=== PATIENT | male | born 1950 | race Caucasian/White ===

== ENCOUNTER 2020-02-15 15:56 | Emergency (ER) | payer MEDICARE, BC ==
[2020-02-15] MEDS ORDERED: Sodium Chloride 0.9% 10 ML Syringe FLUSH PRN ×2 (16:36→18:18)
[2020-02-15] MEDS ORDERED: Sodium Chloride 0.9% 1,000 ML IV SCH (16:45)
--- NOTE | 2020-02-15 17:26 | EDM.PDOC ---
ED HPI GENERAL MEDICAL PROBLEM - General Chief Complaint: Respiratory Problem Stated Complaint: SOB/WEAK/COUGH Time Seen by Provider: 02/15/20 16:27 Source of Information: Reports: Patient, Family, Provider History Limitations: Reports: No Limitations - History of Present Illness INITIAL COMMENTS - FREE TEXT/NARRATIVE: The patient presents with a cough, fever, chills, shortness of breath and generalized weakness. The patient's provider TANVIR Ferreira called and said she is sending the patient in. She did a telehealth visit with him today and he is not doing well. On the 25 of January the patient's tested positive for COVID 19. He started having symptoms on the . He had fever, chills, cough, congestion and shortness of breath. He has been dealing with bilateral foot ulcers on the borges of his feet. The right one healed. The left one he had surgery on and he developed osteomyolitis. He is on doxycycline for over a month. He has been sitting around not doing much. He has no chest pain, abdominal pain, nausea or vomiting. He is not eating much. He has a history of diabetes, HTN, and peripheral neuropathy. Onset: Gradual Duration: Week(s): Improves with: Reports: None Worsens with: Reports: None Associated Symptoms: Reports: Cough, Fever/Chills, Shortness of Breath. Denies: Chest Pain, Headaches, Nausea/Vomiting - Related Data Allergies Allergy/AdvReac Type Severity Reaction Status Date / Time No Known Allergies Allergy Verified 02/15/20 16:16 Home Meds: Home Meds Ascorbic Acid [Vitamin C] 500 mg PO DAILY 05/17/14 [History] Aspirin [Suresh Chewable Aspirin] 81 mg PO DAILY 05/17/14 [History] Cholecalciferol (Vitamin D3) [Vitamin D3] 2,000 unit PO DAILY 05/17/14 [History] Fish Oil/Tyler-3 Fatty Acids [Fish Oil 1,000 MG] 1 gm PO DAILY 05/17/14 [History] metFORMIN [Glucophage] 500 mg PO BID 05/17/14 [History] dexAMETHasone [Dexamethasone] 8 mg PO BID #12 tab 02/15/20 [Rx] Past Medical History HEENT History: Reports: Impaired Vision Social & Family History - Tobacco Use Smoking Status *Q: Never Smoker ED ROS GENERAL - Review of Systems Review Of Systems: See Below Constitutional: Reports: Fever, Chills, Malaise, Weakness, Fatigue HEENT: Reports: No Symptoms Respiratory: Reports: Shortness of Breath, Cough Cardiovascular: Reports: No Symptoms Endocrine: Reports: No Symptoms GI/Abdominal: Reports: No Symptoms : Reports: No Symptoms Musculoskeletal: Reports: No Symptoms ED EXAM, GENERAL - Physical Exam Exam: See Below Exam Limited By: No Limitations General Appearance: Alert, No Apparent Distress Ears: Normal External Exam Nose: Normal Inspection Head: Atraumatic, Normocephalic Neck: Normal Inspection Respiratory/Chest: No Respiratory Distress, Decreased Breath Sounds, Rhonchi Cardiovascular: Regular Rate, Rhythm, No Edema, No Murmur GI/Abdominal: Soft, Non-Tender, No Organomegaly, No Mass Back Exam: Normal Inspection Extremities: Normal Inspection Course - Vital Signs Last Recorded V/S: Last Vital Signs Temp 99.0 F 02/15/20 16:13 Pulse 102 H 02/15/20 16:13 Resp 18 02/15/20 16:13 BP 131/88 02/15/20 16:13 Pulse Ox 90 L 02/15/20 16:13 - Orders/Labs/Meds Orders: Active Orders 24 hr Category Date Time Status Cardiac Monitoring [RC] . DIRECTED Care 02/15/20 16:36 Active Oxygen Therapy [RC] PRN Care 02/15/20 16:36 Active Peripheral IV Care [RC] . DIRECTED Care 02/15/20 16:36 Active Ang Chest [CT] Stat Exams 02/15/20 17:53 Taken Chest 1V Frontal [CR] Stat Exams 02/15/20 16:38 Taken Sodium Chloride 0.9% [Normal Saline] 1,000 ml Med 02/15/20 16:45 Active IV .BOLUS Sodium Chloride 0.9% [Normal Saline] 100 ml Med 02/15/20 18:30 Active IV ASDIRECTED Sodium Chloride 0.9% [Saline Flush] Med 02/15/20 16:36 Active 10 ml FLUSH ASDIRECTED PRN Sodium Chloride 0.9% [Saline Flush] Med 02/15/20 18:18 Active 10 ml FLUSH ONETIME PRN Peripheral IV Insertion Adult [OM.PC] Stat Oth 02/15/20 16:36 Ordered Medication Orders Sodium Chloride (Normal Saline) 1,000 mls @ 1,000 mls/hr IV .BOLUS SHADIA Last Admin: 02/15/20 18:11 Dose: 1,000 mls/hr Documented by: QUINTIN Sodium Chloride (Normal Saline) 100 mls @ 75 mls/hr IV ASDIRECTED SHADIA Last Admin: 02/15/20 19:09 Dose: 75 mls/hr Documented by: MER Sodium Chloride (Saline Flush) 10 ml FLUSH ASDIRECTED PRN PRN Reason: Keep Vein Open Last Admin: 02/15/20 16:30 Dose: 10 ml Documented by: QUINTIN Sodium Chloride (Saline Flush) 10 ml FLUSH ONETIME PRN PRN Reason: IV FLUSH Last Admin: 02/15/20 19:09 Dose: 10 ml Documented by: MER Labs: Laboratory Tests 02/15/20 02/15/20 02/15/20 Range/Units 16:50 16:50 16:50 WBC 5.57 (4.23-9.07) K/mm3 RBC 5.00 (4.63-6.08) M/mm3 Hgb 13.7 D (13.7-17.5) gm/dl Hct 41.0 (40.1-51.0) % MCV 82.0 D (79.0-92.2) fl MCH 27.4 (25.7-32.2) pg MCHC 33.4 (32.2-35.5) g/dl RDW Std Deviation 47.1 H (35.1-43.9) fL Plt Count 185 (163-337) K/mm3 MPV 9.8 (9.4-12.3) fl Neut % (Auto) 74.9 H (34.0-67.9) % Lymph % (Auto) 15.4 L (21.8-53.1) % Murray % (Auto) 9.3 (5.3-12.2) % Eos % (Auto) 0 L (0.8-7.0) Baso % (Auto) 0.2 (0.1-1.2) % Neut # (Auto) 4.17 (1.78-5.38) K/mm3 Lymph # (Auto) 0.86 L (1.32-3.57) K/mm3 Murray # (Auto) 0.52 (0.30-0.82) K/mm3 Eos # (Auto) 0.00 L (0.04-0.54) K/mm3 Baso # (Auto) 0.01 (0.01-0.08) K/mm3 ESR 46 H (0-15) mm/hr D-Dimer, Quantitative 1.27 H (0.19-0.50) mg/L Puncture Site ABG pH (7.35-7.45) ABG pCO2 (35.0-45.0) mmHg ABG pO2 (80.0-100.0) mmHg ABG HCO3 (22.0-26.0) meq/L ABG O2 Saturation (96.0-97.0) % ABG Base Excess (-2-2.0) Soto Test A-a Gradient mmHg O2 Delivery Device Oxygen Flow Rate FiO2 (21.00-100.00) % Sodium (136-145) mEq/L Potassium (3.5-5.1) mEq/L Chloride (98-107) mEq/L Carbon Dioxide (21-32) mEq/L Anion Gap (5-15) BUN (7-18) mg/dL Creatinine (0.7-1.3) mg/dL Est Cr Clr Drug Dosing mL/min Estimated GFR (MDRD) (>60) mL/min BUN/Creatinine Ratio (14-18) Glucose (80-115) mg/dL Lactic Acid (0.4-2.0) mmol/L Calcium (8.5-10.1) mg/dL Ferritin (26-388) ng/ml Total Bilirubin (0.2-1.0) mg/dL AST (15-37) U/L ALT (16-63) U/L Alkaline Phosphatase (46-116) U/L Lactate Dehydrogenase (85-227) U/L C-Reactive Protein (<1.0) mg/dL Total Protein (6.4-8.2) g/dl Albumin (3.4-5.0) g/dl Globulin gm/dL Albumin/Globulin Ratio (1-2) SARS-CoV-2 RNA ([place]) (NEGATIVE) 02/15/20 02/15/20 02/15/20 Range/Units 16:50 16:50 16:50 WBC (4.23-9.07) K/mm3 RBC (4.63-6.08) M/mm3 Hgb (13.7-17.5) gm/dl Hct (40.1-51.0) % MCV (79.0-92.2) fl MCH (25.7-32.2) pg MCHC (32.2-35.5) g/dl RDW Std Deviation (35.1-43.9) fL Plt Count (163-337) K/mm3 MPV (9.4-12.3) fl Neut % (Auto) (34.0-67.9) % Lymph % (Auto) (21.8-53.1) % Murray % (Auto) (5.3-12.2) % Eos % (Auto) (0.8-7.0) Baso % (Auto) (0.1-1.2) % Neut # (Auto) (1.78-5.38) K/mm3 Lymph # (Auto) (1.32-3.57) K/mm3 Murray # (Auto) (0.30-0.82) K/mm3 Eos # (Auto) (0.04-0.54) K/mm3 Baso # (Auto) (0.01-0.08) K/mm3 ESR (0-15) mm/hr D-Dimer, Quantitative (0.19-0.50) mg/L Puncture Site ABG pH (7.35-7.45) ABG pCO2 (35.0-45.0) mmHg ABG pO2 (80.0-100.0) mmHg ABG HCO3 (22.0-26.0) meq/L ABG O2 Saturation (96.0-97.0) % ABG Base Excess (-2-2.0) Soto Test A-a Gradient mmHg O2 Delivery Device Oxygen Flow Rate FiO2 (21.00-100.00) % Sodium 134 L (136-145) mEq/L Potassium 3.6 (3.5-5.1) mEq/L Chloride 98 (98-107) mEq/L Carbon Dioxide 26 (21-32) mEq/L Anion Gap 13.6 (5-15) BUN 11 (7-18) mg/dL Creatinine 0.9 (0.7-1.3) mg/dL Est Cr Clr Drug Dosing 93.89 mL/min Estimated GFR (MDRD) > 60 (>60) mL/min BUN/Creatinine Ratio 12.2 L (14-18) Glucose 100 (80-115) mg/dL Lactic Acid 1.2 (0.4-2.0) mmol/L Calcium 8.3 L (8.5-10.1) mg/dL Ferritin 3370 H (26-388) ng/ml Total Bilirubin 0.7 (0.2-1.0) mg/dL AST 71 H (15-37) U/L ALT 57 (16-63) U/L Alkaline Phosphatase 75 (46-116) U/L Lactate Dehydrogenase 438 H (85-227) U/L C-Reactive Protein 24.2 H* (<1.0) mg/dL Total Protein 6.8 (6.4-8.2) g/dl Albumin 2.8 L (3.4-5.0) g/dl Globulin 4.0 gm/dL Albumin/Globulin Ratio 0.7 L (1-2) SARS-CoV-2 RNA ([place]) (NEGATIVE) 02/15/20 02/15/20 Range/Units 17:00 17:05 WBC (4.23-9.07) K/mm3 RBC (4.63-6.08) M/mm3 Hgb (13.7-17.5) gm/dl Hct (40.1-51.0) % MCV (79.0-92.2) fl MCH (25.7-32.2) pg MCHC (32.2-35.5) g/dl RDW Std Deviation (35.1-43.9) fL Plt Count (163-337) K/mm3 MPV (9.4-12.3) fl Neut % (Auto) (34.0-67.9) % Lymph % (Auto) (21.8-53.1) % Murray % (Auto) (5.3-12.2) % Eos % (Auto) (0.8-7.0) Baso % (Auto) (0.1-1.2) % Neut # (Auto) (1.78-5.38) K/mm3 Lymph # (Auto) (1.32-3.57) K/mm3 Murray # (Auto) (0.30-0.82) K/mm3 Eos # (Auto) (0.04-0.54) K/mm3 Baso # (Auto) (0.01-0.08) K/mm3 ESR (0-15) mm/hr D-Dimer, Quantitative (0.19-0.50) mg/L Puncture Site Rt radial ABG pH 7.49 H (7.35-7.45) ABG pCO2 30.0 L (35.0-45.0) mmHg ABG pO2 70.0 L (80.0-100.0) mmHg ABG HCO3 22.4 (22.0-26.0) meq/L ABG O2 Saturation 94.8 L (96.0-97.0) % ABG Base Excess 0.3 (-2-2.0) Soto Test Positive A-a Gradient 92 mmHg O2 Delivery Device Nasal cannula Oxygen Flow Rate 2.0 FiO2 28.00 (21.00-100.00) % Sodium (136-145) mEq/L Potassium (3.5-5.1) mEq/L Chloride (98-107) mEq/L Carbon Dioxide (21-32) mEq/L Anion Gap (5-15) BUN (7-18) mg/dL Creatinine (0.7-1.3) mg/dL Est Cr Clr Drug Dosing mL/min Estimated GFR (MDRD) (>60) mL/min BUN/Creatinine Ratio (14-18) Glucose (80-115) mg/dL Lactic Acid (0.4-2.0) mmol/L Calcium (8.5-10.1) mg/dL Ferritin (26-388) ng/ml Total Bilirubin (0.2-1.0) mg/dL AST (15-37) U/L ALT (16-63) U/L Alkaline Phosphatase (46-116) U/L Lactate Dehydrogenase (85-227) U/L C-Reactive Protein (<1.0) mg/dL Total Protein (6.4-8.2) g/dl Albumin (3.4-5.0) g/dl Globulin gm/dL Albumin/Globulin Ratio (1-2) SARS-CoV-2 RNA ([place]) Positive H (NEGATIVE) Meds: Medications Generic Name Dose Route Start Last Admin Trade Name Freq PRN Reason Stop Dose Admin Sodium Chloride 1,000 mls @ 1,000 mls/hr 02/15/20 16:45 02/15/20 18:11 Normal Saline IV 1,000 mls/hr .BOLUS SHADIA Administration Sodium Chloride 100 mls @ 75 mls/hr 02/15/20 18:30 02/15/20 19:09 Normal Saline IV 75 mls/hr ASDIRECTED SHADIA Administration Sodium Chloride 10 ml 02/15/20 16:36 02/15/20 16:30 Saline Flush FLUSH 10 ml ASDIRECTED PRN Administration Keep Vein Open Sodium Chloride 10 ml 02/15/20 18:18 02/15/20 19:09 Saline Flush FLUSH 10 ml ONETIME PRN Administration IV FLUSH Discontinued Medications Generic Name Dose Route Start Last Admin Trade Name Ulises PRN Reason Stop Dose Admin Dexamethasone 6 mg 02/15/20 19:35 02/15/20 19:44 Dexamethasone IVPUSH 02/15/20 19:36 6 mg ONETIME ONE Administration Iopamidol 100 ml 02/15/20 18:18 02/15/20 19:09 Isovue-370 (76%) IVPUSH 02/15/20 18:19 100 ml ONETIME ONE Administration - Re-Assessments/Exams Free Text/Narrative Re-Assessment/Exam: 02/15/20 17:55 I ordered an IV saline lock, EKG, CXR, labs, blood cultures, ABG, COVID 19 test and lactic acid. His CXR shows nonspecific extensive ground-glass opacities in the right lung. His CBC looks good. His pH is elevated at 7.49. His pCO2 is low at 30. His pO2 is low at 70. His lactic acid is normal. His COVID 19 is positive. 02/15/20 18:45 His ferritin is elevated at 3370. His LDH is elevated at 438. His CRP is elevated at 24.2. I am waiting for his CT angio. 02/15/20 19:[address] shows no evidence of pulmonary embolism. Peripheral nonspecific ground- glass/crazy paving opacities in both lungs worse on the right than the left. These are compatible with COVID 19. 02/15/20 19:35 We do not have beds here and both [facility] are full. I told the patient this and that I will need to fly him to a [facility]. He did not want to go. I will set him up with home oxygen and give him a dose of dexamethasone here and a prescription for more for 5 days. I will have him follow up with Monique Bearden. Departure - Departure Time of Disposition: 19:40 Disposition: Home, Self-Care 01 Condition: Fair Clinical Impression: COVID-19, Pneumonia due to COVID-19 virus, Hypoxia - Discharge Information *PRESCRIPTION DRUG MONITORING PROGRAM REVIEWED*: Not Applicable *COPY OF PRESCRIPTION DRUG MONITORING REPORT IN PATIENT JORDIN: Not Applicable Prescriptions: dexAMETHasone [Dexamethasone] 8 mg PO BID #12 tab Referrals: Yodit Bearden PA-C [Primary Care Provider] - 2 Days Forms: ED Department Discharge Additional Instructions: Use the oxygen continuously at home. Take the dexamethasone 8mg 2 times per day for 3 days. Take tylenol or motrin for any fever. Please return if you are worse. Sepsis Event Note (ED) - Evaluation Sepsis Screening Result: No Definite Risk - Focused Exam Vital Signs: Vital Signs Temp Pulse Resp BP Pulse Ox 02/15/20 16:13 99.0 F 102 H 18 131/88 90 L - My Orders Last 24 Hours: My Active Orders 02/15/20 16:36 Cardiac Monitoring [RC] . DIRECTED Oxygen Therapy [RC] PRN Peripheral IV Care [RC] . DIRECTED Sodium Chloride 0.9% [Saline Flush] 10 ml FLUSH ASDIRECTED PRN Peripheral IV Insertion Adult [OM.PC] Stat 02/15/20 16:38 Chest 1V Frontal [CR] Stat 02/15/20 16:45 Sodium Chloride 0.9% [Normal Saline] 1,000 ml IV .BOLUS 02/15/20 17:53 Ang Chest [CT] Stat 02/15/20 18:18 Sodium Chloride 0.9% [Saline Flush] 10 ml FLUSH ONETIME PRN 02/15/20 18:30 Sodium Chloride 0.9% [Normal Saline] 100 ml IV ASDIRECTED - Assessment/Plan Last 24 Hours: My Active Orders 02/15/20 16:36 Cardiac Monitoring [RC] . DIRECTED Oxygen Therapy [RC] PRN Peripheral IV Care [RC] . DIRECTED Sodium Chloride 0.9% [Saline Flush] 10 ml FLUSH ASDIRECTED PRN Peripheral IV Insertion Adult [OM.PC] Stat 02/15/20 16:38 Chest 1V Frontal [CR] Stat 02/15/20 16:45 Sodium Chloride 0.9% [Normal Saline] 1,000 ml IV .BOLUS 02/15/20 17:53 Ang Chest [CT] Stat 02/15/20 18:18 Sodium Chloride 0.9% [Saline Flush] 10 ml FLUSH ONETIME PRN 02/15/20 18:30 Sodium Chloride 0.9% [Normal Saline] 100 ml IV ASDIRECTED
[2020-02-15] MEDS ORDERED: Iopamidol 755 Mg/ML 100 ML Bottle IVPUSH ONE (18:18)
[2020-02-15] MEDS ORDERED: Sodium Chloride 0.9% 100 ML IV SCH (18:30)
[2020-02-15] MEDS ORDERED: Dexamethasone 4 MG/ML SDV IVPUSH ONE (19:35)
== END 2020-02-15 20:38 | disposition home or self-care (01) ==
LOC: JD.ED 15:56
DX: U07.1 COVID-19 (principal); J12.89 Other viral pneumonia; R09.02 Hypoxemia; R79.82 Elevated C-reactive protein (CRP); I10 Essential (primary) hypertension; E11.42 Type 2 diabetes mellitus with diabetic polyneuropathy; M86.9 Osteomyelitis, unspecified; Z79.899 Other long term (current) drug therapy; Z79.82 Long term (current) use of aspirin
CPT/HCPCS: 36415; 36600; 71045; 71275; 80053; 82728; 82803; 83605; 83615; 85025; 85379; 85652; 86140; 96374; 99285; J1100; J7030; J7050; Q9967; U0002; 99284

== ENCOUNTER 2021-08-12 08:44 | Day surgery (SDC) | payer MEDICARE, BC ==
[~2021-08-12 08:44] MED LIST: Acetaminophen 325 MG Tab PO SCH; Lactated Ringers 1,000 ML IV SCH; Lidocaine 1%/Sod Bicarbonate in NS 8.4% 1 ML Syringe IDERM PRN; Pregabalin 25 MG Cap PO SCH; Sodium Chloride 0.9% 10 ML Syringe FLUSH PRN; Sodium Chloride 0.9% 10 ML Syringe FLUSH SCH; oxyCODONE ER 10 MG TAB.ER PO SCH
[2021-08-12] MEDS ORDERED: ceFAZolin 1 GM Vial ONE (08:58)
[2021-08-12] MEDS ORDERED: Midazolam 1 MG/ML 2 ML SDV ONE (08:59)
[2021-08-12] MEDS ORDERED: fentaNYL 100 MCG/2 ML SDV ONE (08:59)
[2021-08-12] MEDS ORDERED: Propofol 200 MG/20 ML SDV ONE ×2 (08:59→11:34)
[2021-08-12] MEDS ORDERED: Lactated Ringers 1,000 ML ONE (10:42)
[2021-08-12] MEDS ORDERED: fentaNYL 100 MCG/2 ML SDV IVPUSH PRN (11:07)
[2021-08-12] MEDS ORDERED: HYDROmorphone 0.5 MG/0.5 ML Syringe IVPUSH PRN (11:07)
[2021-08-12] MEDS ORDERED: Ondansetron 4 MG/2 ML SDV IVPUSH PRN (11:07)
[2021-08-12] MEDS: Morphine 8 MG, EPINEPHrine 0.3 MG, Cefuroxime 750 MG, Ketorolac 30 MG, Sodium Chloride ... PRN ×10 (11:18→11:43)
[2021-08-12] MEDS: Vancomycin 1 GM SDV ONE ×2 (11:19→11:44)
[2021-08-12] MEDS ORDERED: Ketorolac 15 MG/ML SDV IVPUSH ONE (13:30)
== END 2021-08-12 16:00 | disposition home or self-care (01) ==
LOC: JD.SDS 08:44
PROVIDERS: ATTEND Orthopaedic Surgery
DX: M16.12 Unilateral primary osteoarthritis, left hip (principal); I10 Essential (primary) hypertension; E11.42 Type 2 diabetes mellitus with diabetic polyneuropathy; E78.00 Pure hypercholesterolemia, unspecified; F17.220 Nicotine dependence, chewing tobacco, uncomplicated; Z88.8 Allergy status to other drugs, medicaments and biological substances; Z79.899 Other long term (current) drug therapy; Z79.84 Long term (current) use of oral hypoglycemic drugs; Z98.890 Other specified postprocedural states
CPT/HCPCS: 27130; 36415; 73501; 86850; 86900; 86901; 97110; 97116; 97161; A9270; C1713; C1776; J0171; J0690; J0697; J1885; J2250; J2270; J2370; J2704; J3010; J3370; J7120; 01214